=== PATIENT | female | born 1955 | race Caucasian/White ===

== ENCOUNTER 2022-08-23 11:27 | Emergency (ER) | payer MEDICARE, OTHER ==
[2022-08-23 11:43] VITALS: O2SAT 99
[2022-08-23] MEDS ORDERED: Sodium Chloride 0.9% 1000 ML 1,000 ML IV STA (11:48)
[2022-08-23] MEDS ORDERED: Pepcid 20 MG VIAL IV ONE ×2 (11:48→11:53)
[2022-08-23] MEDS ORDERED: BENADRYL 50 MG/ML IV ONE (11:48)
[2022-08-23] MEDS ORDERED: solu-MEDROL 125 MG, Sterile H2O 10 ml 2 ML IV ONE ×2 (11:48)
[2022-08-23] MEDS ORDERED: Sterile H2O 10 ml IJ ONE (11:52)
[2022-08-23] MEDS ORDERED: Sodium Chloride 0.9% 1000 ML 1,000 ML ONE (11:53)
[2022-08-23] MEDS ORDERED: BENADRYL 50 MG/ML ONE (11:53)
[2022-08-23] MEDS ORDERED: solu-MEDROL ONE (11:53)
[2022-08-23 12:09] LABS: Absolute Neutrophil Ct (ANC) 7.64 x10^3/uL (1.4-6.9); BASOPHIL % 0.5 % (0.0-0.4); Basophil (Absolute #) 0.05 x10^3/uL (0-0.4); Eosinophil % 0.6 % (0.00-5.0); Eosinophil (Absolute #) 0.06 x10^3/uL (0-0.5); Hematocrit 38.3 % (35-47); Hemoglobin 12.4 g/dL (12.0-16.0); IMMATURE GRAN # 0.03 x10^3u/L (0.00-0.03); IMMATURE GRAN % 0.3 % (0.00-0.4); Lymphocyte (Absolute #) 1.72 x10^3/uL (1.0-4.6); Lymphocytes % 16.9 % (24.0-44.0); Mean Cell Volume 100.8 fL (78-100); Mean Corpuscular Hemoglobin 32.6 pg (26-32); Mean Corpuscular Hgb Concent. 32.4 g/dL (32-36); Mean Platelet Volume 8.9 fL (7.5-11.0); Monocyte (Absolute #) 0.65 x10^3/uL (0.0-1.3); Monocytes % 6.4 % (0.0-12.0); Neutrophil % 75.3 % (36.0-66.0); Platelet Count 248 x10^3/uL (150-450); White Blood Count 10.2 x10^3/uL (4.0-10.5)
--- NOTE | 2022-08-23 12:46 | ERPHSYRPT ---
- History of Present Illness Time Seen by Provider: 08/23/22 11:32 Source: patient Exam Limitations: no limitations Patient Subjective Stated Complaint: C/O allergic reaction to new medication. Patient states she took fluconazole for the first time yesterday around 11am and started having allergic reaction symptoms approx one hour prior to coming into the ER. Triage Nursing Assessment: Patient ambulated back to the ER. No SOB. She is alert and oriented; anxious. SKin tone normal. DEONTE CHUNG. Physician History: 67 years old female presented in the ER with chief complaint of allergic reaction to fluconazole. Patient reports she took fluconazole yesterday afternoon and started to have some dizziness and tingling sensations around the lip which got worse around 11 AM today with heaviness/swelling of lower lip, scratchiness in the throat and mild difficulty breathing and was feeling dizzy and lightheaded. Does report having similar symptoms when she was having allergic reaction to Macrobid. Denies any chest pain or palpitations. Denies any difficulty breathing currently. No throat closing sensations. No nausea or vomiting. Timing/Duration: today Severity: moderate Allergies/Adverse Reactions: fluconazole Allergy (Verified 08/23/22 11:46) nitrofurantoin [From Macrobid] Allergy (Verified 08/23/22 11:31) Shortness of Breath nitrofurantoin macrocrystalline [From Macrobid] Allergy (Verified 08/23/22 11:31) Shortness of Breath Home Medications: Aspirin 81 gm Chew [Baby Aspirin 81 mg Chew] 81 mg PO DAILY 11/12/14 [History] Ezetimibe 10 mg [Zetia 10 MG] 10 mg PO DAILY 11/12/14 [History] Levothyroxine Sodium 25 Mcg [Synthroid 25 Mcg] 25 mcg PO DAILY 11/12/14 [History] Lisinopril/Hydrochlorothiazide [Lisinopril-Hctz 10-12.5 mg Tab] 12.5 mg PO DAILY 11/12/14 [History] Omeprazole 20 MG [Prilosec 20 mg] 20 mg PO BID 11/12/14 [History] dilTIAZem HCl [Cardizem Cd] 180 mg PO DAILY 11/12/14 [History] Hx Tetanus, Diphtheria Vaccination/Date Given: Yes Hx Influenza Vaccination/Date Given: Yes Hx Pneumococcal Vaccination/Date Given: Yes Immunizations Up to Date: Yes Travel Risk - International Travel Have you traveled outside of the country in past 3 weeks: No - Coronavirus Screening Are you exhibiting any of the following symptoms?: No Close contact with a COVID-19 positive Pt in past 14-21 Days: No - Vaccine Status Have you recieved a Covid-19 vaccination: Yes [employer]: Moderna - Vaccination Dates Date of 2cond Vaccination (if applicable): ? - Review of Systems Constitutional: No Symptoms Eyes: No Symptoms Ears, Nose, & Throat: Mouth Swelling, Throat Swelling Respiratory: No Symptoms Cardiac: No Symptoms Abdominal/Gastrointestinal: No Symptoms Genitourinary Symptoms: No Symptoms Musculoskeletal: No Symptoms Neurological: No Symptoms Psychological: Anxiety Hematologic/Lymphatic: No Symptoms Immunological/Allergic: No Symptoms - Past Medical History Pertinent Past Medical History: Yes Neurological History: No Pertinent History ENT History: No Pertinent History Cardiac History: High Cholesterol, Hypertension Respiratory History: No Pertinent History Endocrine Medical History: No Pertinent History Musculoskeletal History: Arthritis GI Medical History: GERD, Gallbladder Disease History: No Pertinent History Psycho-Social History: Anxiety Female Reproductive Disorders: Abnormal Uterine Bleeding - Past Surgical History Past Surgical History: Yes Neuro Surgical History: No Pertinent History Cardiac: Other Respiratory: No Pertinent History Gastrointestinal: Cholecystectomy Genitourinary: No Pertinent History Musculoskeletal: No Pertinent History, Orthopedic Surgery Female Surgical History: Hysterectomy, Tubal Ligation Other Surgical History: "tube into heart valve", t&a, - Social History Smoking Status: Never smoker Exposure to second hand smoke: No Drug Use: none Patient Lives Alone: No - Nursing Vital Signs Nursing Vital Signs: Initial Vital Signs Temperature 97.6 F 08/23/22 11:32 Pulse Rate 104 H 08/23/22 11:32 Respiratory Rate 18 08/23/22 11:32 Blood Pressure 147/87 08/23/22 11:32 O2 Sat by Pulse Oximetry 99 08/23/22 11:32 Pain Scale Pain Intensity 0 - Physical Exam General Appearance: no apparent distress, alert, anxiety Eye Exam: PERRL/EOMI Ears, Nose, Throat Exam: normal ENT inspection, pharynx normal, moist mucous membranes, No pharyngeal erythema Neck Exam: normal inspection Respiratory Exam: normal breath sounds, lungs clear Cardiovascular Exam: regular rate/rhythm, normal heart sounds Gastrointestinal/Abdomen Exam: soft, No tenderness Back Exam: normal range of motion Extremity Exam: normal inspection, normal range of motion Neurologic Exam: alert, oriented x 3, cooperative, assembler insulator II-XII nml as tested, nml cerebellar function, nml station & gait, sensation nml, No motor deficits Skin Exam: normal color SpO2 Interpretation: normal SpO2: 99 O2 Delivery: Room Air Ordered Tests: Active Orders 24 hr Category Date Time Status Tuyere Fitter STAT Care 08/23/22 11:49 Completed IV Insertion STAT Care 08/23/22 11:48 Completed CBC W DIFF Stat Lab 08/23/22 12:06 Completed CMP Stat Lab 08/23/22 12:06 Completed TROPONIN Q3H Lab 08/23/22 12:06 Completed UA W/RFX UR CULTURE Stat Lab 08/23/22 13:25 Completed Medication Summary Discontinued Medications Generic Name Dose Route Start Last Admin Trade Name Freq PRN Reason Stop Dose Admin Methylprednisolone Sodium 0 mg 08/23/22 11:48 08/23/22 12:00 Succinate 125 mg/ Sterile IV 08/23/22 11:49 125 mg Water 2 ml STAT ONE Administration Diphenhydramine HCl 25 mg 08/23/22 11:48 08/23/22 12:03 Diphenhydramine Hcl 50 Mg/Ml Vial IV 08/23/22 11:49 25 mg STAT ONE Administration Diphenhydramine HCl Confirm 08/23/22 11:53 Diphenhydramine Hcl 50 Mg/Ml Vial Administered 08/23/22 11:54 Dose 50 mg .ROUTE .STK-MED ONE Famotidine 20 mg 08/23/22 11:48 08/23/22 12:02 Famotidine 20 Mg/1 Vial IV 08/23/22 11:49 20 mg STAT ONE Administration Famotidine Confirm 08/23/22 11:53 Famotidine 20 Mg/1 Vial Administered 08/23/22 11:54 Dose 20 mg IV .STK-MED ONE Sodium Chloride 1,000 mls @ 999 mls/hr 08/23/22 11:48 08/23/22 13:28 Sodium Chloride 0.9% 1000 Ml IV 08/23/22 12:48 Infused .Q1H1M STA Infusion Sodium Chloride Confirm 08/23/22 11:53 Sodium Chloride 0.9% 1000 Ml Administered 08/23/22 11:54 Dose 1,000 mls @ ud .ROUTE .STK-MED ONE Methylprednisolone Sodium Succinate Confirm 08/23/22 11:53 Methylprednis Sod Succ 125 Mg/2 Ml Vial Administered 08/23/22 11:54 Dose 125 mg .ROUTE .STK-MED ONE Sterile Water Confirm 08/23/22 11:52 Water For Injection,Sterile 10 Ml Vial Administered 08/23/22 11:53 Dose 10 ml IJ .STK-MED ONE Lab/Rad Data: Laboratory Result Diagrams 08/23/22 12:06 08/23/22 12:06 Laboratory Results 08/23/22 08/23/22 08/23/22 Range/Units 13:25 12:06 12:06 WBC (4.0-10.5) x10^3/uL RBC (4.1-5.4) x10^6/uL Hgb (12.0-16.0) g/dL Hct (35-47) % MCV (78-100) fL MCH (26-32) pg MCHC (32-36) g/dL RDW (11.5-14.0) % Plt Count (150-450) x10^3/uL MPV (7.5-11.0) fL Gran % (36.0-66.0) % Immature Gran % (Auto) (0.00-0.4) % Nucleat RBC Rel Count (0.00-0.1) % Eos # (Auto) (0-0.5) x10^3/uL Immature Gran # (Auto) (0.00-0.03) x10^3u/L Absolute Lymphs (auto) (1.0-4.6) x10^3/uL Absolute Monos (auto) (0.0-1.3) x10^3/uL Absolute Nucleated RBC (0.00-0.01) x10^3u/L Lymphocytes % (24.0-44.0) % Monocytes % (0.0-12.0) % Eosinophils % (0.00-5.0) % Basophils % (0.0-0.4) % Absolute Granulocytes (1.4-6.9) x10^3/uL Basophils # (0-0.4) x10^3/uL Sodium 138 (137-145) mmol/L Potassium 3.9 (3.5-5.1) mmol/L Chloride 103 (98-107) mmol/L Carbon Dioxide 25 (22-30) mmol/L Anion Gap 13.8 (5-15) MEQ/L BUN 26 H (7-17) mg/dL Creatinine 1.30 H (0.52-1.04) mg/dL Estimated GFR 43.2 ML/MIN Glucose 107 H (74-106) mg/dL Calcium 9.5 (8.4-10.2) mg/dL Total Bilirubin 0.60 (0.2-1.3) mg/dL AST 28 (14-36) U/L ALT 28 (0-35) U/L Alkaline Phosphatase 103 (38-126) U/L Troponin I < 0.012 (0.000-0.034) ng/mL Serum Total Protein 7.7 (6.3-8.2) g/dL Albumin 4.4 (3.5-5.0) g/dL Urine Color Yellow (Yellow) Urine Appearance Clear (Clear) Urine pH 5.5 (4.6-8.0) Ur Specific [place] <=1.005 (1.005-1.030) Urine Protein Negative (Negative) Urine Glucose (UA) Negative (Negative) mg/dL Urine Ketones Negative (Negative) Urine Blood Negative (Negative) Urine Nitrite Negative (Negative) Urine Bilirubin Negative (Negative) Urine Urobilinogen 0.2 (0.2) mg/dL Ur Leukocyte Esterase Negative (Negative) U Hyaline Cast (Auto) 3-5 A (0-2) /LPF Urine Microscopic RBC 0-2 (0-5) /HPF Urine Microscopic WBC 0-2 (0-5) /HPF Ur Epithelial Cells None Seen (None Seen) /HPF Urine Bacteria None Seen (None Seen) /HPF Urine Culture Reflexed NO (NO) 08/23/22 Range/Units 12:06 WBC 10.2 (4.0-10.5) x10^3/uL RBC 3.80 L (4.1-5.4) x10^6/uL Hgb 12.4 (12.0-16.0) g/dL Hct 38.3 (35-47) % MCV 100.8 H (78-100) fL MCH 32.6 H (26-32) pg MCHC 32.4 (32-36) g/dL RDW 13.0 (11.5-14.0) % Plt Count 248 (150-450) x10^3/uL MPV 8.9 (7.5-11.0) fL Gran % 75.3 H (36.0-66.0) % Immature Gran % (Auto) 0.3 (0.00-0.4) % Nucleat RBC Rel Count 0.0 (0.00-0.1) % Eos # (Auto) 0.06 (0-0.5) x10^3/uL Immature Gran # (Auto) 0.03 (0.00-0.03) x10^3u/L Absolute Lymphs (auto) 1.72 (1.0-4.6) x10^3/uL Absolute Monos (auto) 0.65 (0.0-1.3) x10^3/uL Absolute Nucleated RBC 0.00 (0.00-0.01) x10^3u/L Lymphocytes % 16.9 L (24.0-44.0) % Monocytes % 6.4 (0.0-12.0) % Eosinophils % 0.6 (0.00-5.0) % Basophils % 0.5 (0.0-0.4) % Absolute Granulocytes 7.64 H (1.4-6.9) x10^3/uL Basophils # 0.05 (0-0.4) x10^3/uL Sodium (137-145) mmol/L Potassium (3.5-5.1) mmol/L Chloride (98-107) mmol/L Carbon Dioxide (22-30) mmol/L Anion Gap (5-15) MEQ/L BUN (7-17) mg/dL Creatinine (0.52-1.04) mg/dL Estimated GFR ML/MIN Glucose (74-106) mg/dL Calcium (8.4-10.2) mg/dL Total Bilirubin (0.2-1.3) mg/dL AST (14-36) U/L ALT (0-35) U/L Alkaline Phosphatase (38-126) U/L Troponin I (0.000-0.034) ng/mL Serum Total Protein (6.3-8.2) g/dL Albumin (3.5-5.0) g/dL Urine Color (Yellow) Urine Appearance (Clear) Urine pH (4.6-8.0) Ur Specific [place] (1.005-1.030) Urine Protein (Negative) Urine Glucose (UA) (Negative) mg/dL Urine Ketones (Negative) Urine Blood (Negative) Urine Nitrite (Negative) Urine Bilirubin (Negative) Urine Urobilinogen (0.2) mg/dL Ur Leukocyte Esterase (Negative) U Hyaline Cast (Auto) (0-2) /LPF Urine Microscopic RBC (0-5) /HPF Urine Microscopic WBC (0-5) /HPF Ur Epithelial Cells (None Seen) /HPF Urine Bacteria (None Seen) /HPF Urine Culture Reflexed (NO) - Progress Progress: improved Progress Note: 08/23/22 12:45 67 years old female presented in the ER with chief complaint of allergic reaction to fluconazole. Patient reports she took fluconazole yesterday afternoon and started to have some dizziness and tingling sensations around the lip which got worse around 11 AM today with heaviness/swelling of lower lip, scratchiness in the throat and mild difficulty breathing and was feeling dizzy and lightheaded. Does report having similar symptoms when she was having allergic reaction to Macrobid. Denies any chest pain or palpitations. Denies any difficulty breathing currently. No throat closing sensations. No nausea or vomiting. 08/23/22 13:29 She is given Solu-Medrol/Benadryl/Pepcid along with fluids, on reevaluation she is feeling much better and wants to leave. Swelling or heaviness in the lips and irritation in the throat is improved. I have obtained baseline labs which are pending. Patient does not want to wait for the labs and wants to leave. Discussed with patient about leaving without full work-up the risk involved in detail but she still wants to leave. 08/23/22 15:33 Work-up showed some elevation in creatinine from her baseline around 0.8 and today is 1.3. Patient did receive a bolus of fluid while in the ER. Patient is called back and informed about the results and recommended increase hydration and outpatient follow-up with her primary care for recheck of kidney functions. Counseled pt/family regarding: lab results, diagnosis, need for follow-up Medical Desision Making - Diagnostic Testing Diagnostic test were ordered, analyzed, and reviewed by me: Yes - Departure Departure Disposition: Home Clinical Impression: Allergic reaction, MARILYN (acute kidney injury) Condition: Stable Critical Care Time: No Referrals: REKHA HA NP [Primary Care Provider] - Follow up with PCP 1 day Instructions: Adverse Drug Reactions, Adult (DC) Additional Instructions: Follow-up with primary care for reevaluation. Return to ER if again having swelling of the lips, throat closing sensation/difficulty breathing/palpitations or dizziness etc. Prescriptions: Diphenhydramine HCl 25 mg [Benadryl 25 mg Capsule] 25 mg PO Q4H PRN PRN #20 cap PRN Reason: Allergies Prednisone 20 mg [Deltasone 20 mg] 60 mg PO DAILY 5 Days #15 tablet Famotidine 20 mg [Pepcid 20 MG] 20 mg PO BID #10 tablet
[2022-08-23 13:32] VITALS: BP 133/82; PULSE 82
[2022-08-23 13:40] LABS: Appearance Clear (Clear); Bacteria None Seen /HPF (None Seen); Bilirubin Negative (Negative); Blood Negative (Negative); Epithelial Cells None Seen /HPF (None Seen); Glucose, Urine Negative (Negative); Ketones Negative (Negative); Leukocyte Esterase Negative (Negative); Nitrite Negative (Negative); Ph 5.5 (4.6-8.0); Protein,Urine Dip Negative (Negative); RBC 0-2 /HPF (0-5); Specific Gravity <=1.005 (1.005-1.030); Urobilinogen 0.2 mg/dL (0.2); WBC 0-2 /HPF (0-5)
[2022-08-23 13:52] LABS: ADD URINE CULTURE? NO (NO)
[2022-08-23 13:58] LABS: ALBUMIN 4.4 g/dL (3.5-5.0); ANION GAP 13.8 MEQ/L (5-15); BILIRUBIN,TOTAL 0.6 mg/dL (0.2-1.3); Calcium 9.5 mg/dL (8.4-10.2); Creatinine 1 1.3 mg/dL (0.52-1.04); EST GLOMERULAR FILTRATION RATE 43.2 ML/MIN; Potassium 3.9 mmol/L (3.5-5.1); Total Protein 7.7 g/dL (6.3-8.2)
== END 2022-08-23 13:38 | disposition home or self-care (01) ==
LOC: ED 11:27
DX: N17.9 Acute kidney failure, unspecified (principal); T37.8X5A Adverse effect of other specified systemic anti-infectives and antiparasitics, initial encounter; R42 Dizziness and giddiness; R06.00 Dyspnea, unspecified; R20.2 Paresthesia of skin; E78.5 Hyperlipidemia, unspecified; I10 Essential (primary) hypertension; Z79.899 Other long term (current) drug therapy; Z79.52 Long term (current) use of systemic steroids
CPT/HCPCS: 36000; 36415; 80053; 81001; 84484; 85025; 93041; 96360; 96374; 96375; 99284; J1200; J2930